=== PATIENT | male | born 2000 | race African-American/Black ===

== ENCOUNTER 2022-07-10 20:04 | Emergency (ER) | payer MEDICAID ==
[~2022-07-10] VITALS: Ht 175.3 cm; Wt 72.7 kg
[2022-07-10 20:12] VITALS: BP 131/80
[2022-07-11] MEDS ORDERED: DICL-163 PO (00:36)
== END 2022-07-11 04:05 | disposition home or self-care (01) ==
LOC: ER 20:08
DX: S40.011A Contusion of right shoulder, initial encounter (principal); X58.XXXA Exposure to other specified factors, initial encounter; Y93.67 Activity, basketball; Y92.89 Other specified places as the place of occurrence of the external cause; Y99.8 Other external cause status
CPT/HCPCS: 73030